=== PATIENT | female | born 1950 | race African-American/Black ===

== ENCOUNTER → 2022-02-02 | Outpatient (CLI) | payer MEDICAID, MEDICARE ==
[2022-02-02 14:22] LABS: BASO # 0.1 x10^3/uL (0.0-0.2); BASO % 1 % (0-3); EOS # 0.2 x10^3/uL (0.0-0.7); EOS % 1 % (0-3); HEMATOCRIT 42.6 % (36.0-47.0); HEMOGLOBIN 13.2 g/dL (12.0-15.5); LYMPH # 13.3 x10^3/uL (1.0-4.8); LYMPH % 72 % (24-48); MEAN CORPUSCULAR HEMOGLOBIN 27 pg (25-35); MEAN CORPUSCULAR HGB CONC 31 g/dL (31-37); MEAN CORPUSCULAR VOLUME 86 fL (79-100); MONO # 0.7 x10^3/uL (0.0-1.1); MONO % 4 % (0-9); NEUT # 4.2 x10^3/uL (1.8-7.7); NEUT % 23 % (31-73); PLATELET COUNT 150 x10^3/uL (140-400); RED BLOOD COUNT 4.97 x10^6/uL (3.50-5.40); RED CELL DISTRIBUTION WIDTH 16.2 % (11.5-14.5); WHITE BLOOD COUNT 18.5 x10^3/uL (4.0-11.0)
[2022-02-02 14:34] LABS: CALCIUM 9.2 mg/dL (8.5-10.1); CREATININE 2.1 mg/dL (0.6-1.0); POTASSIUM 4.5 mmol/L (3.5-5.1)
[2022-02-02 14:42] LABS: ALBUMIN 3.6 g/dL (3.4-5.0); TOTAL BILIRUBIN 0.7 mg/dL (0.2-1.0); TOTAL PROTEIN 7.2 g/dL (6.4-8.2)
[2022-02-02 14:57] LABS: % EOS 1 % (0-5); % LYMPHS 73 % (24-48); % MONOS 4 % (0-10); % SEGS 22 % (35-66)
[2022-02-02 14:58] LABS: PLT ESTIMATE ADEQUATE (ADEQUATE)
== END ==
LOC: ONCLAB 13:40
PROVIDERS: ATTEND Internal Medicine Hematology & Oncology
DX: C91.10 Chronic lymphocytic leukemia of B-cell type not having achieved remission (principal)
CPT/HCPCS: 36415; 80053; 85007; 85025

== ENCOUNTER → 2022-03-05 | Outpatient (CLI) | payer MEDICARE, MEDICAID | LOC: ONCLAB 10:50 | PROVIDERS: ATTEND Internal Medicine Hematology & Oncology | DX: C91.10 Chronic lymphocytic leukemia of B-cell type not having achieved remission (principal); D63.1 Anemia in chronic kidney disease; Z11.59 Encounter for screening for other viral diseases | CPT/HCPCS: 36415; 84550; 86704; 86706; 86803; 87340 ==